=== PATIENT | female | born 1950 | race Caucasian/White ===

== ENCOUNTER 2017-04-15 13:51 | Emergency (ER) | payer OTHER ==
[~2017-04-15] VITALS: Ht 142.2 cm; Wt 77.7 kg
[~2017-04-15 13:51] MED LIST: ADVAIR 100-501 EACH IH; ADVAIR 250/501 DISK IH; ALLEGRA180 MG PO; ASPIR-MOX 325325 MG PO; ASPIRIN81 M2 PO; Advair 250/50 Diskus IH; CYANOCOBALAM1000 MCG PO; Coumadin dosing per PO; FEOSOL325 MG PO; Feosol PO; HYDROXYCHLOROQ200 MG PO; MAXZIDE 75/501 EACH PO; MAXZIDE 75/51 TABLET PO; OSTEO-BIFLE1 CAPSULE PO; PERCOCET 5/31 TABLET PO; PRILOSEC20 MG PO; PRINIVIL10 MG PO; PRINIVIL20 MG PO; PROTONIX40 MG PO; PROVENTIL HFA6.7 GM IH; Percocet 5/325,Endoc PO; Proventil,Ventolin H IH; ULTRAM50 MG PO; VITAMIN D22000 UNIT PO; Vitamin D PO
[2017-04-15 15:13] LABS: HEMATOCRIT 38.8 % (36.0-46.0); MCH 29.4 PG (29.0-34.0); MCV 91.9 FL (83-99); MEAN PLAT.VOLUME 8.8 uM^3 (9.5-12.4); PLATELET COUNT 306 K/uL (156-360); RBC DIS.WIDTH-SD 47.5 % (39-53); RED BLOOD COUNT 4.22 M/uL (3.80-5.20); WHITE BLOOD COUNT 7.8 K/uL (4.1-10.2)
[2017-04-15 15:21] LABS: CHLORIDE 105 mEq/L (99-109); POTASSIUM 4.6 mEq/L (3.7-5.4); SODIUM 142 mEq/L (136-147)
[2017-04-15 15:22] LABS: GLUCOSE 139 mg/dL (70-99)
[2017-04-15 15:24] LABS: ANION GAP 12 MEQ/L (2-14)
[2017-04-15 15:26] LABS: GFR ESTIMATE (CALCULATED) 52 mL/min/
[2017-04-15 15:27] LABS: UREA NITROGEN (BUN) 33 mg/dL (9-23)
[2017-04-15 17:05] VITALS: BP 164/72
== END 2017-04-15 17:25 | disposition home or self-care (01) ==
LOC: EME 13:51
PROVIDERS: Emergency Medicine
DX: R51 Headache (principal); I10 Essential (primary) hypertension; J44.9 Chronic obstructive pulmonary disease, unspecified; K21.9 Gastro-esophageal reflux disease without esophagitis; Z96.652 Presence of left artificial knee joint; Z79.82 Long term (current) use of aspirin; Z88.1 Allergy status to other antibiotic agents
CPT/HCPCS: 70450; 80048; 85027; 99281; 99285; J1885; J2405; J7030